=== PATIENT | female | born 1965 | race Caucasian/White ===

== ENCOUNTER 2022-06-27 08:43 | Outpatient (REF) | payer OTHER, SELFPAY ==
[2022-06-27 12:42] LABS: Influenza A PCR NEGATIVE (Negative); Influenza B PCR NEGATIVE (Negative); Resp Syncy Virus RNA Qual PCR NEGATIVE (Negative); SARS COV2 PCR INHOUSE POSITIVE (Negative)
== END 2022-06-27 08:44 | disposition home or self-care (01) ==
LOC: HO.LAB 08:43
PROVIDERS: Visit Provider Hospitalist
DX: Z20.822 Contact with and (suspected) exposure to COVID-19 (principal); B34.9 Viral infection, unspecified
CPT/HCPCS: 0241U

== ENCOUNTER 2022-10-25 08:06 | Outpatient (REF) | payer BC, OTHER, SELFPAY ==
[2022-10-25 12:07] LABS: Hematocrit 48.7 % (37.0-47.0); Hemoglobin 15.8 g/dl (12.0-16.0); Mean Corpuscular HGB Conc 32.4 g/dl (31.0-35.0); Mean Corpuscular Hemoglobin 30.9 pg (27.0-33.0); Mean Corpuscular Volume 95.3 fL (80.0-98.0); Mean Platelet Volume 9.8 fL (9.4-12.3); Platelet Count 353 X10*3/uL (160-400); Red Blood Count 5.11 X10*6/uL (4.20-5.50); Red Cell Distribution Width 14.7 % (11.0-16.0); White Blood Count 12.5 X10*3/uL (4.8-10.8)
[2022-10-25 16:28] LABS: Alanine Aminotransferase 12 U/L (0-31); Albumin Level 4.1 g/dL (3.5-5.0); Alkaline Phosphatase 79 U/L (39-117); Anion Gap 16 (12-20); Aspartate Amino Transferase 14 U/L (5-31); Bilirubin Total 0.4 mg/dL (0.0-1.0); Blood Urea Nitrogen 13 mg/dL (9-16); Calcium 9.3 mg/dL (8.4-10.2); Carbon Dioxide 27 mmol/L (22-29); Chloride 104 mmol/L (96-108); Cholesterol 259 mg/dL; Estimated Glomerular Filt Rate 58; Glucose Fasting 85 mg/dL (60-99); HDL Cholesterol 40 mg/dL; LDL Cholesterol Calculated 190 mg/dl; Potassium 4.3 mmol/L (3.3-5.1); Sodium 143 mmol/L (135-145); TSH reflex Free T4 1.02 uIU/mL (0.32-4.0); Total Protein 6.4 g/dL (6.5-8.0); Triglycerides 145 mg/dL
== END 2022-10-25 08:07 | disposition home or self-care (01) ==
LOC: HO.WFDLDS 08:06
PROVIDERS: Visit Provider Hospitalist
DX: Z00.00 Encounter for general adult medical examination without abnormal findings (principal); Z20.2 Contact with and (suspected) exposure to infections with a predominantly sexual mode of transmission
CPT/HCPCS: 36415; 80053; 80061; 84443; 85027

== ENCOUNTER 2023-09-12 10:26 | Outpatient (AMB) | payer OTHER, SELFPAY ==
--- NOTE | 2023-09-12 08:26 | MHC.PC.OV ---
Vital Signs 09/12/23 10:35 Height 5 ft 6 in Weight 150 lb BMI 24.2 BP 162/89 H Blood Pressure Location Lt brachial Position Sitting Pulse 67 Pulse Source Pulse Oximeter Pulse Oximetry (%) 98 Oxygen Delivery Method Room Air Intake Visit Reasons: Transfer of care, HTN Intake Note: Patient is transfer of care from [facility], she feels arthritis in her shoulders, she slipped in bathtub and injured fingers in left hand. Allergies losartan Adverse Reaction (Verified 09/12/23 10:37) dizziness Tobacco use date assessed: 09/12/23 Dental Screening Dental Screen Date: 09/12/23 Did you have a dental visit in the last 12 months?: Yes Did you have a dental problem in the last 6 months where you did not have access to dental care?: No Was dental information given to patient?: Patient has dentist HPI Transfer of care, HTN HPI Details Transfer Prior?PCP: [facility] Last?office?visit/CPE: Acute?issue(s): HTN L hand pain Patient?has?had?hypertension?and?has?tried?losartan?in?the?past?as?well?as?diltiazem. She?says?that?losartan?caused?dizziness.??She?says?that?diltiazem?did?not?work?so?she?stopped?it. Patient?says?she?is?slipped?in?her?shower?and?fell?and?hit?her?left?hand?and?has?pain?there. She?also?says?that?she?gets?popping?sounds?in?bilateral?shoulders?but?does?not?want?to?do?anything?about?it. PMHx: CVA, HTN SurgHx: None SocHx: smoking 1/2 ppd. EtOH none.No drugs PFSH Medical History No pertinent past medical history Surgical History History of partial hysterectomy Family History Father No problems noted. Mother No problems noted. Daughter In good health Social History Housing: House Patient Tobacco Use Status: Current everyday Tobacco user Cigarette Packs Per Day: 10 e-Cigarette/Vaping Use: Never Used Current occupational status: disabled Cognitive needs: No Hearing needs: No Vision needs: No Questionnaire PHQ-9 Over the last 2 weeks, how often have you been bothered by any of the following problems? 1. Little interest or pleasure in doing things: not at all 2. Feeling down, depressed, or hopeless: not at all 3. Trouble falling or staying asleep, or sleeping too much: not at all 4. Feeling tired or having little energy: not at all 5. Poor appetite or overeating: not at all 6. Feeling bad about yourself - or that you are a failure or have let yourself or your family down: not at all 7. Trouble concentrating on things, such as reading the newspaper or watching television: not at all 8. Moving or speaking so slowly that other people could have noticed. Or the opposite - being so fidgety or restless that you have been moving around a lot more than usual: not at all 9. Thoughts that you would be better off or of hurting yourself in some way: not at all Total score: 0 Source: Developed by Drs. Jaxon Freedman, Charisse Paula, Sergo Perrin and colleagues, with an educational gustavo from [employer]. Thrive Questionnaire Date Thrive assessed: 03/05/22 I am a: Patient What is your living situation today?: I have a steady place to live Within the past 12 months, did the food you bought not last and you didn't have the money to get more?: Never true Within the past 12 months, did you worry whether your food would run out before you got money to buy more?: Never true Do you have trouble paying for medicines?: No Do you have trouble getting transportation to medical appointments?: No Do you have trouble paying your heating and electricity bill?: No Do you have trouble taking care of your child, family member or friend?: No Do you have trouble with day-to-day activities such as bathing, preparing meals, shopping, managing finances, etc.?: No Are you currently unemployed and looking for a job?: No Are you interested in more education?: No THRIVE Score: 0 AUDIT C Alcohol Use Questionnaire (AUDIT-C) 1. How often do you have a drink containing alcohol?: Never 3. How often do you have six or more drinks on one occasion?: Never Total Score: 0 YOHAN-7 AMB Questionnaire YOHAN-7 Date YOHAN - 7 assessed: 09/12/23 Feeling nervous, anxious, or on edge: 0 = Not at all Not being able to stop or control worryin = Not at all Worrying too much about different things: 0 = Not at all Trouble relaxin = Not at all Being so restless that it is hard to sit still: 0 = Not at all Becoming easily annoyed or irritable: 0 = Not at all Feeling afraid as if something awful might happen: 0 = Not at all Total YOHAN-7 score (0-4 normal; 5-9 mild; 10-14 moderate; 15-21 severe): 0 Source: Developed by Drs. Jaxon Freedman, Charisse Paula, Sergo Perrin and colleagues, with an educational gustavo from [employer]. Review of Systems Const Denies chills, Denies fatigue, Denies fever(s), Denies headache(s) and Denies weakness ENT Denies dizziness and Denies headache(s) Card Denies chest pain, Denies lightheadedness, Denies dyspnea and Denies other (Palpitations) Resp Denies cough, Denies dyspnea, Denies wheezing and Denies other ( shortness of breath) Musc Denies numbness and Denies tingling Neuro Denies dizziness, Denies headache(s), Denies numbness, Denies tingling, Denies paresthesias and Denies weakness Psych Denies anxiety and Denies depression Endo Denies fatigue Aller/Immun Denies wheezing Physical exam (Primary Care) Vital Signs: Last Vital Signs Pulse 67 09/12/23 10:35 BP 162/89 H 09/12/23 10:35 Pulse Ox 98 09/12/23 10:35 Oxygen Delivery Method Room Air 09/12/23 10:35 BMI result Body Mass Index 24.2 Tobacco/Smoking Status: Tobacco use Status Tobacco use date assessed 09/12/23 09/12/23 10:44 Patient Tobacco Use Status Current everyday Tobacco 09/12/23 08:27 e-Cigarette/Vaping Use Never Used 09/12/23 10:44 PHQ-9: PHQ-9 Score PHQ-9: Total score 0 09/12/23 10:44 Thrive Assessment: Date of Thrive Assessment Date Thrive assessed 03/05/22 09/12/23 08:27 Const General: no acute distress and well developed Nutritional Appearance: well nourished Orientation/consciousness: patient oriented x3 HENMT Head: Yes normocephalic and Yes atraumatic Eyes General: appearance normal, both eyes and all related structures Pupils: Equal, round and reactive pupils present EOM: EOMs intact bilaterally Resp Effort & Inspection: normal respiratory effort Auscultation: clear to auscultation bilaterally Cardio Rate: regular rate Rhythm: regular rhythm Heart sounds: S1 normal heart sound present, S2 normal heart sound present, no gallops, no murmurs and no rubs Neuro General: patient oriented x3 and gait normal Cranial nerves: Yes Equal, round and reactive pupils present Psych Affect: normal affect Assessment and Plan Assessment & Plan (1) Left hand pain: Code(s): M79.642 - Pain in left hand Plan: Left?hand?pain?after?fall Check?x-ray (2) Cerebrovascular accident (CVA) with involvement of right side of body: Code(s): I63.9 - Cerebral infarction, unspecified Plan: History?of?CVA?and?patient's?blood?pressure?is?not?controlled.??She?is?also?still?smoking. Will?work?at?controlling?her?blood?pressure?and?we?had?a?long?conversation?about?this.??See?below Encouraged?smoking?cessation She?is?on?aspirin?81?mg?for?secondary?prevention (3) Hypertension: Code(s): I10 - Essential (primary) hypertension Qualifiers: Hypertension type: essential hypertension Qualified Code(s): I10 - Essential (primary) hypertension Plan: Blood?pressure?is?not?controlled.??Goal?is?less?than?130/80 Will?trial?lisinopril-hydrochlorothiazide Follow-up?in?1?month (4) Smoker: Code(s): F17.200 - Nicotine dependence, unspecified, uncomplicated Plan: She?is?smoking?1/2?pack?per?day.??Encouraged?weaning?further?and?cessation. We?can Orders: Orders PT Evaluation and Treatment Today M25.511 - Pain in right shoulder, M25.512 - Pain in left shoulder Comprehensive [place]. Panel Fast Today Z00.00 - Encounter for general adult medical examination without abnormal findings Complete Blood Count Auto Diff Today Z00.00 - Encounter for general adult medical examination without abnormal findings Microalbumin, Random (w Creat) Today I10 - Essential (primary) hypertension TSH reflex Free T4 Today Z00.00 - Encounter for general adult medical examination without abnormal findings UA and rflx microscopic Today Z00.00 - Encounter for general adult medical examination without abnormal findings Vitamin D 25-OH Total Today E55.9 - Vitamin D deficiency, unspecified XR hand LT min 3V Today M79.642 - Pain in left hand Lipid Panel Today Z00.00 - Encounter for general adult medical examination without abnormal findings Medications: New lisinopril-hydrochlorothiazide 10-12.5 mg 1 tab PO DAILY 30 days 30 tabs 2RF Coding Level of Care Code Est Pt Level 4 (24232) Diagnoses Left hand pain M79.642 Cerebrovascular accident (CVA) with involvement of right side of body I63.9 Essential hypertension I10 Hypertension type: essential hypertension Smoker F17.200
[2023-09-12 10:35] VITALS: BP 162/89; PULSE 67; O2SAT 98; BMI 24.2
== END 2023-09-12 11:14 | disposition home or self-care (01) ==
PROVIDERS: PCP Family Medicine; Visit Provider Family Medicine
DX: M79.642 Pain in left hand (principal); Z86.73 Personal history of transient ischemic attack (TIA), and cerebral infarction without residual deficits; I10 Essential (primary) hypertension; F17.210 Nicotine dependence, cigarettes, uncomplicated
CPT/HCPCS: 99214

== ENCOUNTER 2023-09-18 09:31 | Outpatient (REF) | payer OTHER, SELFPAY ==
--- NOTE | ~2023-09-18 | XR_ITS ---
EXAMINATION: XR HAND, LEFT CLINICAL INFORMATION: Left hand pain following a fall 4 weeks ago. COMPARISON: None available. TECHNIQUE: PA, lateral, and oblique views of the left hand. FINDINGS: Minimally displaced, oblique fracture through the distal diametaphysis of the fifth metacarpal with extension to the ulnar aspect of the fifth metacarpophalangeal articular surface. Cortical step-off measures up to 0.1 cm. There is mild new bone/callus formation along the radial aspect of the fracture line. No additional fracture. No dislocation. Mild joint space narrowing with tiny marginal osteophyte scattered throughout the interphalangeal joints. No osseous erosion. No abnormal soft tissue calcification. XR/XR hand LT min 3V IMPRESSION: Minimally displaced, oblique fracture through the distal diametaphysis of the fifth metacarpal with extension to the ulnar aspect of the fifth metacarpophalangeal articular surface. Mild new bone/callus formation along the radial aspect of the fracture line.
[2023-09-18 11:33] LABS: Appearance Urine Clear; Color Urine Yellow; Glucose Urine UA Negative (Negative); Leukocyte Esterase Urine Negative (Negative); MANUAL DIFF FLAG NO; Nitrite Urine Negative (Negative); Urine Blood Negative (Negative); Urine Ketones Negative (Negative); Urine Protein Negative (Neg-Trace)
[2023-09-18 11:44] LABS: Basophils Absolute Auto 0.1 X10*3/uL (0.0-0.2); Basophils Percent Auto 1.1 % (0-2); Eosinophils Absolute Auto 0.4 X10*3/uL (0.0-0.4); Eosinophils Percent Auto 3.2 % (0-4); Hematocrit 47.8 % (37.0-47.0); Hemoglobin 15.8 g/dl (12.0-16.0); Imm Gran Abs Auto 0.05 X10*3/uL (0.00-0.03); Imm Gran Pct Auto 0.4 % (0.0-0.4); Lymphocytes Absolute Auto 4.3 X10*3/uL (1.2-4.9); Lymphocytes Percent Auto 34.5 % (20-40); Mean Corpuscular HGB Conc 33.1 g/dl (31.0-35.0); Mean Corpuscular Hemoglobin 31.1 pg (27.0-33.0); Mean Corpuscular Volume 94.1 fL (80.0-98.0); Mean Platelet Volume 9.9 fL (9.4-12.3); Monocytes Absolute Auto 0.7 X10*3/uL (0.1-1.2); Monocytes Percent Auto 5.8 % (2-11); Neutrophils Absolute Auto 6.8 x10*3/uL (2.0-8.3); Platelet Count 348 X10*3/uL (160-400); Red Blood Count 5.08 X10*6/uL (4.20-5.50); Red Cell Distribution Width 14.8 % (11.0-16.0); White Blood Count 12.4 X10*3/uL (4.8-10.8)
[2023-09-18 12:01] LABS: Alanine Aminotransferase 16 U/L (0-31); Alkaline Phosphatase 71 U/L (39-117); Anion Gap 15 (12-20); Aspartate Amino Transferase 15 U/L (5-31); Bilirubin Total 0.3 mg/dL (0.0-1.0); Blood Urea Nitrogen 11 mg/dL (9-16); Calcium 9.4 mg/dL (8.4-10.2); Carbon Dioxide 26 mmol/L (22-29); Chloride 105 mmol/L (96-108); Cholesterol 222 mg/dL (<200); Estimated Glomerular Filt Rate 59; Glucose Fasting 100 mg/dL (60-99); HDL Cholesterol 37 mg/dL (>40); LDL Cholesterol Calculated 153 mg/dL (<100); Potassium 3.6 mmol/L (3.3-5.1); Sodium 142 mmol/L (135-145); Triglycerides 162 mg/dL (<150)
[2023-09-18 12:25] LABS: TSH reflex Free T4 0.75 uIU/mL (0.32-4.0); Vitamin D 25-OH Total 68.6 ng/mL (>30)
[2023-09-18 12:40] LABS: Creatinine Urine 40.52 mg/dL; Microalbumin Urine < 5.0 mg/L
== END 2023-09-18 09:32 | disposition home or self-care (01) ==
LOC: HO.WFDLDS 09:31
PROVIDERS: PCP Family Medicine; Visit Provider Family Medicine
DX: Z00.00 Encounter for general adult medical examination without abnormal findings (principal); I10 Essential (primary) hypertension; E55.9 Vitamin D deficiency, unspecified; M79.642 Pain in left hand
CPT/HCPCS: 36415; 73130; 80053; 80061; 81003; 82043; 82306; 82570; 84443; 85025

== ENCOUNTER 2023-09-24 08:02 | Outpatient (REF) | payer OTHER, SELFPAY ==
--- NOTE | ~2023-09-24 | XR_ITS ---
EXAMINATION: XR HAND, LEFT CLINICAL INFORMATION: Pain. COMPARISON: Radiographs dated 09/18/2023. TECHNIQUE: PA, lateral, and oblique views of the left hand. FINDINGS: There is stable alignment of a mildly displaced oblique fracture of the distal metadiaphysis of the left fifth metacarpal bone. Again, this shows extension into the medial articular surface at the fifth metacarpophalangeal joint. There is mild callus formation. No dislocation is seen. There is no focal soft tissue swelling, gas or foreign body. XR/XR hand LT min 3V IMPRESSION: There is stable alignment of a minimally displaced oblique fracture with intra-articular extension of the distal left fifth metacarpal bone. There is mild periosteal callus formation.
== END 2023-09-24 08:03 | disposition home or self-care (01) ==
LOC: HO.HOSX 08:02
PROVIDERS: PCP Family Medicine; Visit Provider Physician Assistant
DX: S62.307A Unspecified fracture of fifth metacarpal bone, left hand, initial encounter for closed fracture (principal)
CPT/HCPCS: 73130; 99202

== ENCOUNTER 2023-09-24 08:02 | Outpatient (AMB) | payer OTHER, SELFPAY ==
--- NOTE | 2023-09-24 08:25 | A.OFFVIS_ITS ---
Intake Vital Signs 09/24/23 08:26 Height 5 ft 6 in Weight 150 lb BMI 24.2 Handedness Left Intake Visit Reasons: FC - left small finger fx, DOI 09/12/23 Intake Note: Lola is a 58 year old left hand dominant female who presents today for a evaluation of her left PF and PF finger fx, DOI 09/12/23. Patient slipped in her bathtub and injured her left hand. She states that her pain is a 2/10 on the pain scale. Patient reports her pain is a but worse when its cold. Denies numbness and tingling. Allergies losartan Adverse Reaction (Verified 09/24/23 08:31) dizziness HPI FC - left small finger fx, DOI 09/12/23 HPI Details 58-year-old left hand dominant female williams driscoll presents in the office today, as a new patient, for an evaluation of left hand pain. The patient was seen by her PCP on 09/12/2023 where she reported a slip and fall in the shower causing her to injury her left hand. While in the office today the patient reports her pain as a 2/10. She reports an increase in pain when she is cold. She denies numbness and tingling. The patient reports the injury occurred over 4 weeks ago. Patient has a social history of smoking, 0.5 packs per day. [facility] Medical History No pertinent past medical history Surgical History History of partial hysterectomy Family History Father No problems noted. Mother No problems noted. Daughter In good health Social History Housing: House Patient Tobacco Use Status: Current everyday Tobacco user Cigarette Packs Per Day: 10 e-Cigarette/Vaping Use: Never Used Current occupational status: disabled Cognitive needs: No Hearing needs: No Vision needs: No Review of Systems Const All systems reviewed & are unremarkable except as noted in HPI and below Physical Exam Vital Signs: BMI result Body Mass Index 24.2 Const General: cooperative and no acute distress Orientation/consciousness: patient oriented x3 Resp Effort & Inspection: normal respiratory effort and able to speak in complete sentences Cardio Peripheral pulses: Peripheral pulses 2+ throughout Skin General skin exam: no rashes or lesions noted Neuro General: patient oriented x3 Extrem Other: Left small finger: Normal to inspection. No ecchymosis, erythema, or edema. No tenderness to palpation along the 5th metacarpal. Able to make a full fist. Able to perform full finger flexion, extension, abduction, adduction, finger cross, okay sign, and thumbs up without deficit. Sensation intact. Capillary refill is brisk. Patient complains of swelling and decreased ROM at the DIP of the index finger. Office Procedures Fracture Care Fracture Billing Code: Fracture Billing Code Assessment & Plan Assessment & Plan (1) Fracture of fifth metacarpal bone of left hand: Onset Date: ~08/2023 Code(s): S62.307A - Unspecified fracture of fifth metacarpal bone, left hand, initial encounter for closed fracture Plan Ms. Ann is a 58-year-old left hand dominant female who presents in the office today, as a new patient, for an evaluation of left hand pain. The patient was seen by her PCP on 09/12/2023 where she reported a slip and fall in the shower causing her to injury her left hand. While in the office today the patient reports her pain as a 2/10. She reports an increase in pain when she is cold. She denies numbness and tingling. The patient reports the injury occurred over 4 weeks ago. Patient has a social history of smoking, 0.5 packs per day. She was given a velcro wrist splint to support the fracture site. She declined to take the splint at this time. I would like for her to avoid heavy lifting greater than a coffee cup or cell phone for 2-3 weeks. In 2-3 weeks she may return to normal activities as tolerated. Follow up will be PRN, or sooner if needed. X-rays of the left hand were obtained while in the office today and were reviewed by me, Brenda Gaxiola PA-C, revealed routine healing of a left 5th metacarpal fracture. X-rays of the left hand, obtained on 09/18/2023, revealed: Minimally displaced, oblique fracture through the distal diametaphysis of the fifth metacarpal with extension to the ulnar aspect of the fifth metacarpophalangeal articular surface. Mild new bone/callus formation along the radial aspect of the fracture line. Orders: Orders XR hand LT min 3V Today M79.643 - Pain in unspecified hand Patient Instructions: Scribed by Mariaa Salgado hospitalist medical director, for Brenda Gaxiola MICHELET on 09/24/2023 at 8:04 am, EST. Coding Level of Care Code New Pt Level 4 (78779) Diagnoses Fracture of fifth metacarpal bone of left hand S62.307A CPT Codes Fracture Care - Fracture Billing Code: Fracture Billing Code ([id number])
[2023-09-24 08:26] VITALS: BMI 24.2
== END 2023-09-24 08:46 | disposition home or self-care (01) ==
PROVIDERS: PCP Family Medicine; Visit Provider Physician Assistant
DX: S62.307A Unspecified fracture of fifth metacarpal bone, left hand, initial encounter for closed fracture (principal)
CPT/HCPCS: 99203

== ENCOUNTER 2023-10-28 11:35 | Outpatient (AMB) | payer OTHER, SELFPAY ==
--- NOTE | 2023-10-28 11:44 | A.OFFPC_ITS ---
Vital Signs 10/28/23 11:48 Height 5 ft 6 in Weight 147 lb 8 oz BMI 23.8 BP 161/88 H Blood Pressure Location Lt brachial Position Sitting Pulse 71 Pulse Source Pulse Oximeter Pulse Oximetry (%) 97 Oxygen Delivery Method Room Air Intake Visit Reasons: follow up HTN - see comments Intake Note: Patient is here to follow up on hypertension. Allergies losartan Adverse Reaction (Verified 10/28/23 11:52) dizziness Tobacco use date assessed: 10/28/23 HPI follow up HTN - see comments HPI Details 58 y/o female presents to f/u hypertensi on with hx of CVA. Blood pressure today elevated at 161/88. She is on lisinopril-HCTZ 10-12.5mg daily. Pt reports she has been taking her lisinopril-HCTZ every other day. She notes she has stopped taking this every day as she had been concerned about the 120 systolic number along with fatigue. Pt reports she continues smoking 1/2 ppd. [facility] Medical History No pertinent past medical history Surgical History History of partial hysterectomy Family History Father No problems noted. Mother No problems noted. Daughter In good health Social History Housing: House Patient Tobacco Use Status: Current everyday Tobacco user Cigarette Packs Per Day: 10 e-Cigarette/Vaping Use: Never Used Current occupational status: disabled Cognitive needs: No Hearing needs: No Vision needs: No Questionnaire Thrive Questionnaire Date Thrive assessed: 03/05/22 YOHAN-7 AMB Questionnaire YOHAN-7 Date YOHAN - 7 assessed: 09/12/23 Source: Developed by Drs. Jaxon Freedman, Charisse Paula, Sergo Perrin and colleagues, with an educational gustavo from [employer]. Physical exam (Primary Care) Vital Signs: Last Vital Signs Pulse 71 10/28/23 11:48 BP 161/88 H 10/28/23 11:48 Pulse Ox 97 10/28/23 11:48 Oxygen Delivery Method Room Air 10/28/23 11:48 BMI result Body Mass Index 23.8 Tobacco/Smoking Status: Tobacco use Status Tobacco use date assessed 10/28/23 10/28/23 11:53 Patient Tobacco Use Status Current everyday Tobacco 10/28/23 11:44 e-Cigarette/Vaping Use Never Used 10/28/23 11:44 Thrive Assessment: Date of Thrive Assessment Date Thrive assessed 03/05/22 10/28/23 11:44 Assessment and Plan Assessment & Plan (1) Hypertension: Code(s): I10 - Essential (primary) hypertension Qualifiers: Hypertension type: essential hypertension Qualified Code(s): I10 - Essential (primary) hypertension Plan: Blood?pressure?is?still?too?high.??Goal?is?less?than?130/90 She?says?she?has?not?been?taking?her?medication?every?day We?had?a?long?discussion?regardi ng?her?history?of?stroke?and?other?risk?factors?for?recurrent?stroke?such?as?her ?high?blood?pressure?and?smoking. Encouraged?her?to?try?take?her?medication?every?day Will?follow-up?in?1?month (2) History of CVA (cerebrovascular accident): Code(s): Z86.73 - Personal history of transient ischemic attack (TIA), and cerebral infarction without residual deficits (3) Hand pain: Code(s): M79.643 - Pain in unspecified hand Plan: Left?hand?pain?after?minimally?displaced?fracture Referred?to?Hand?surgery (4) Smoker: Code(s): F17.200 - Nicotine dependence, unspecified, uncomplicated Plan: Encouraged?cessation Orders: Referrals Hand Surgery Referral M79.643 - Pain in unspecified hand, S62.307A - Unspecified fracture of fifth metacarpal bone, left hand, initial encounter for closed fracture Medications: Refilled lisinopril-hydrochlorothiazide 10-12.5 mg 1 tab PO DAILY 30 tabs 2RF 30 days Coding Level of Care Code Est Pt Level 4 (74306) Diagnoses Essential hypertension I10 Hypertension type: essential hypertension History of CVA (cerebrovascular accident) Z86.73 Hand pain M79.643 Smoker F17.200
[2023-10-28 11:48] VITALS: BP 161/88; PULSE 71; O2SAT 97; BMI 23.8
== END 2023-10-28 13:05 | disposition home or self-care (01) ==
PROVIDERS: PCP Family Medicine; Visit Provider Family Medicine
DX: I10 Essential (primary) hypertension (principal); Z86.73 Personal history of transient ischemic attack (TIA), and cerebral infarction without residual deficits; M79.643 Pain in unspecified hand; F17.200 Nicotine dependence, unspecified, uncomplicated
CPT/HCPCS: 99214

== ENCOUNTER 2024-05-11 14:43 | Outpatient (AMB) | payer OTHER, SELFPAY ==
--- NOTE | 2024-05-11 14:45 | AM.OFFWIN_ITS ---
Intake Vital Signs 05/11/24 14:46 Height 5 ft 6 in Weight 144 lb BMI 23.2 BP 128/84 Blood Pressure Location Lt brachial Position Sitting Pulse 89 Pulse Source Pulse Oximeter Temp 98.1 F Temp Source Oral Pulse Oximetry (%) 98 Oxygen Delivery Method Room Air Intake Visit Reasons: EP feeling of high BP, head/ear pulsing Intake Note: pt c/o ? elevated BP, head and ear pulsating feeling. Started 4 days ago Patient Tobacco Use Status: Current everyday Tobacco user Allergies No Known Allergies Allergy (Verified 05/11/24 14:51) Do you need a note to return to daycare/school/sports/work: No HPI EP feeling of high BP, head/ear pulsing HPI Details This note is constructed using voice recognition software. While every effort has been made to ensure accuracy, rug inspector helper errors may have been included. The patient is a 59 year old female who presents to the clinic today with ear pressure and concern of blood pressure. She notes she has a history of a stroke and she is on antihypertensives. She was switched from losartan to hydrochlorothiazide/lisinopril mixed, which she has not been taking for well over a month. She notes that when she was in the losartan she was getting lightheadedness, and then with the switch of medication she was also getting lightheadedness but it felt more intense. She developed some ear pressure, and felt that it could have been her blood pressure and was concerned given her history of hypertension and her lack of actually treating the blood pressure. She denies fever, chills, cough, shortness of breath, sinus pressure, or any other URI symptoms. She denies chest pain and palpitations. [facility] Medical History No pertinent past medical history Surgical History History of partial hysterectomy Family History Father No problems noted. Mother No problems noted. Daughter In good health Social History Housing: House Patient Tobacco Use Status: Current everyday Tobacco user Cigarette Packs Per Day: 10 e-Cigarette/Vaping Use: Never Used Current occupational status: disabled Cognitive needs: No Hearing needs: No Vision needs: No Review of Systems Const All systems reviewed & are unremarkable except as noted in HPI and below Physical Exam Vital Signs: Last Vital Signs Temp 98.1 F 05/11/24 14:46 Pulse 89 05/11/24 14:46 BP 128/84 05/11/24 14:46 Pulse Ox 98 05/11/24 14:46 Oxygen Delivery Method Room Air 05/11/24 14:46 BMI result Body Mass Index 23.2 Const General: cooperative, healthy appearing, comfortable and no acute distress Orientation/consciousness: patient oriented x3 Limitations: no limitations HEENT Head: Yes normal to inspection Ears: hearing grossly normal bilaterally, external ears normal and TM abnormal retracted General nose exam: Normal external nose present, No nasal discharge present and Abnormal mucous membranes and turbinates present boggy and pale Face and sinus: Yes normal facial exam and Yes sinuses nontender Mouth: Normal oral and palatal mucosa present and moist mucous membranes Throat: Yes tonsils normal, Yes uvula midline, Yes posterior oropharynx abnormal (Erythema), Yes postnasal drainage and Yes cobblestoning Eyes General: appearance normal, both eyes and all related structures Neck Neck: Yes normal visual inspection Resp Effort & Inspection: normal respiratory effort, able to speak in complete sentences, Actively coughing, no respiratory distress, not tachypneic, no tripod positioning and no use of accessory muscles Auscultation: clear to auscultation bilaterally Cardio Rate: regular rate Rhythm: regular rhythm Heart sounds: normal S1 and S2 Skin General skin exam: no rashes or lesions noted Neuro General: patient oriented x3 Extrem General: Yes normal to inspection and Yes no clubbing, cyanosis or edema Assessment & Plan Assessment & Plan (1) Hypertension: Code(s): I10 - Essential (primary) hypertension Qualifiers: Hypertension type: essential hypertension Qualified Code(s): I10 - Essential (primary) hypertension Plan: Patient has not been compliant with her medication for well over 1 month. She does not check her blood pressure at home. Advised her to be monitoring her blood pressure at home, particularly with any concerning symptoms. Recommended adherence to medication, versus follow up with primary care provider if medicati on is providing her with undesired side effects. Stable in office reading today, and she has not taken her medication. (2) Allergic rhinitis: Code(s): J30.9 - Allergic rhinitis, unspecified Qualifiers: Allergic rhinitis trigger: unspecified Allergic rhinitis seasonality: unspecified Qualified Code(s): J30.9 - Allergic rhinitis, unspecified Plan: Supportive measures encouraged and reviewed. Advised patient to try a Flonase nasal spray and second-generation antihistamine such as Zyrtec, Claritin, Lucy or similar. Advised consideration of sinus rinse if needed. Advised patient to follow up with primary care provider with worsening or failure to resolve. Plan See above for full details and plan. Medications: New fluticasone propionate 50 mcg/actuation (Flonase Allergy Relief) administer into each nostril 1 spray intranasal DAILY 16 grams 0RF Coding Level of Care Code Est Pt Level 3 (92837) Diagnoses Essential hypertension I10 Hypertension type: essential hypertension Allergic rhinitis, unspecified seasonality, unspecified trigger J30.9 Allergic rhinitis trigger: unspecified Allergic rhinitis seasonality: unspecified
[2024-05-11 14:46] VITALS: BP 128/84; PULSE 89; TEMP 36.7; O2SAT 98; BMI 23.2
== END 2024-05-11 15:20 | disposition home or self-care (01) ==
PROVIDERS: PCP Family Medicine; Visit Provider Registered Nurse
DX: I10 Essential (primary) hypertension (principal); J30.9 Allergic rhinitis, unspecified

== ENCOUNTER → 2024-05-11 14:43 | Outpatient (BNVA) | payer OTHER, SELFPAY | PROVIDERS: PCP Family Medicine | DX: I10 Essential (primary) hypertension (principal); J30.9 Allergic rhinitis, unspecified | CPT/HCPCS: 99212 ==